=== PATIENT | male | born 2005 | race Caucasian/White ===

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

== ENCOUNTER 2023-01-07 03:38 | Day surgery (SDC) | payer BC, OTHER | END 2023-01-07 22:39 | disposition home or self-care (01) | LOC: WOUND 03:38 | DX: L89.153 Pressure ulcer of sacral region, stage 3 (principal); R77.0 Abnormality of albumin; G82.50 Quadriplegia, unspecified ==

== ENCOUNTER 2023-01-20 01:25 | Day surgery (SDC) | payer BC, OTHER | END 2023-01-20 22:45 | disposition home or self-care (01) | LOC: WOUND 01:25 | DX: L89.154 Pressure ulcer of sacral region, stage 4 (principal); G82.50 Quadriplegia, unspecified; L89.213 Pressure ulcer of right hip, stage 3 | CPT/HCPCS: G0463 ==

== ENCOUNTER 2023-01-28 00:38 | Day surgery (SDC) | payer BC, OTHER | END 2023-01-28 22:39 | disposition home or self-care (01) | LOC: WOUND 00:38 | DX: L89.154 Pressure ulcer of sacral region, stage 4 (principal); L89.222 Pressure ulcer of left hip, stage 2; G82.50 Quadriplegia, unspecified ==

== ENCOUNTER 2023-02-04 02:09 | Day surgery (SDC) | payer BC, OTHER | END 2023-02-04 22:41 | disposition home or self-care (01) | LOC: WOUND 02:09 | DX: L89.153 Pressure ulcer of sacral region, stage 3 (principal); G82.50 Quadriplegia, unspecified; R77.0 Abnormality of albumin; L89.213 Pressure ulcer of right hip, stage 3 | CPT/HCPCS: G0463 ==

== ENCOUNTER 2023-02-11 02:47 | Day surgery (SDC) | payer BC, OTHER | END 2023-02-11 22:39 | disposition home or self-care (01) | LOC: WOUND 02:47 | DX: L89.154 Pressure ulcer of sacral region, stage 4 (principal); L89.222 Pressure ulcer of left hip, stage 2; G82.50 Quadriplegia, unspecified; R77.0 Abnormality of albumin ==

== ENCOUNTER 2023-02-25 02:42 | Day surgery (SDC) | payer BC, OTHER | END 2023-02-25 22:49 | disposition home or self-care (01) | LOC: WOUND 02:42 | DX: L89.154 Pressure ulcer of sacral region, stage 4 (principal); L89.222 Pressure ulcer of left hip, stage 2; G82.50 Quadriplegia, unspecified | CPT/HCPCS: G0463 ==

== ENCOUNTER 2023-03-03 02:22 | Day surgery (SDC) | payer BC, OTHER | END 2023-03-03 22:48 | disposition home or self-care (01) | LOC: WOUND 02:22 | DX: L89.154 Pressure ulcer of sacral region, stage 4 (principal); L89.222 Pressure ulcer of left hip, stage 2; G82.50 Quadriplegia, unspecified; L89.213 Pressure ulcer of right hip, stage 3 | CPT/HCPCS: G0463 ==

== ENCOUNTER 2023-03-15 00:27 | Day surgery (SDC) | payer BC, OTHER ==
[2023-03-15 16:16] LABS: Prealbumin, Blood 15.8 mg/dL (20.0-40.0)
[2023-03-15 16:17] LABS: Albumin, Blood 3.4 g/dL (3.4-5.0); Albumin/Globulin Ratio 0.7 (0.8-1.8); Bilirubin, Total 0.3 mg/dL (0.1-1.0); Bun/Creatinine Ratio 50.7 (12.0-20.0); Calcium, Blood 9.4 mg/dL (8.5-10.1); Creatinine, Blood 0.34 mg/dL (0.60-1.20); Globulin, Blood 4.6 g/dL (2.2-4.0); Potassium, Blood 3.7 mmol/L (3.5-5.5)
== END 2023-03-15 22:52 | disposition home or self-care (01) ==
LOC: WOUND 00:27
PROVIDERS: Surgery
DX: L89.154 Pressure ulcer of sacral region, stage 4 (principal); L89.222 Pressure ulcer of left hip, stage 2; G82.50 Quadriplegia, unspecified; R77.0 Abnormality of albumin
CPT/HCPCS: 80053; 84134

== ENCOUNTER 2023-03-22 08:00 | Day surgery (SDC) | payer BC, OTHER | END 2023-03-22 23:59 | disposition home or self-care (01) | LOC: WOUND 08:00 | DX: L89.154 Pressure ulcer of sacral region, stage 4 (principal); L89.322 Pressure ulcer of left buttock, stage 2; G82.50 Quadriplegia, unspecified; R77.0 Abnormality of albumin ==

== ENCOUNTER 2023-03-29 02:14 | Day surgery (SDC) | payer BC, OTHER | END 2023-03-29 22:49 | disposition home or self-care (01) | LOC: WOUND 02:14 | DX: L89.154 Pressure ulcer of sacral region, stage 4 (principal); L89.152 Pressure ulcer of sacral region, stage 2; G82.50 Quadriplegia, unspecified; R77.0 Abnormality of albumin ==

== ENCOUNTER 2023-04-07 00:04 | Day surgery (SDC) | payer BC, OTHER | END 2023-04-07 22:51 | disposition home or self-care (01) | LOC: WOUND 00:04 | DX: L89.154 Pressure ulcer of sacral region, stage 4 (principal); L89.322 Pressure ulcer of left buttock, stage 2; G82.50 Quadriplegia, unspecified; R77.0 Abnormality of albumin; L89.213 Pressure ulcer of right hip, stage 3 | CPT/HCPCS: G0463 ==

== ENCOUNTER 2023-04-21 03:47 | Day surgery (SDC) | payer BC, OTHER | END 2023-04-21 22:57 | disposition home or self-care (01) | LOC: WOUND 03:47 | DX: L89.224 Pressure ulcer of left hip, stage 4 (principal); L89.324 Pressure ulcer of left buttock, stage 4; G82.50 Quadriplegia, unspecified; R77.0 Abnormality of albumin | CPT/HCPCS: 72170; G0463 ==

== ENCOUNTER 2023-04-28 03:50 | Day surgery (SDC) | payer BC, OTHER | END 2023-04-28 22:45 | disposition home or self-care (01) | LOC: WOUND 03:50 | DX: L89.224 Pressure ulcer of left hip, stage 4 (principal); L89.154 Pressure ulcer of sacral region, stage 4; G82.50 Quadriplegia, unspecified; R77.0 Abnormality of albumin ==

== ENCOUNTER → 2023-05-05 | Day surgery (SDC) | payer BC, OTHER | LOC: WOUND 14:43 | DX: L89.154 Pressure ulcer of sacral region, stage 4 (principal); L89.224 Pressure ulcer of left hip, stage 4; G82.50 Quadriplegia, unspecified | CPT/HCPCS: G0463 ==

== ENCOUNTER 2023-05-26 04:42 | Day surgery (SDC) | payer BC, OTHER | END 2023-05-26 22:42 | disposition home or self-care (01) | LOC: WOUND 04:42 | DX: L89.154 Pressure ulcer of sacral region, stage 4 (principal); L89.224 Pressure ulcer of left hip, stage 4; R77.0 Abnormality of albumin; G82.50 Quadriplegia, unspecified ==

== ENCOUNTER 2023-06-02 02:31 | Day surgery (SDC) | payer BC, OTHER | END 2023-06-02 22:47 | disposition home or self-care (01) | LOC: WOUND 02:31 | DX: L89.154 Pressure ulcer of sacral region, stage 4 (principal); L89.324 Pressure ulcer of left buttock, stage 4; G82.50 Quadriplegia, unspecified; R77.0 Abnormality of albumin | CPT/HCPCS: G0463 ==

== ENCOUNTER 2023-06-09 04:13 | Day surgery (SDC) | payer BC, OTHER | END 2023-06-09 23:03 | disposition home or self-care (01) | LOC: WOUND 04:13 | DX: L89.154 Pressure ulcer of sacral region, stage 4 (principal); L89.224 Pressure ulcer of left hip, stage 4; G82.50 Quadriplegia, unspecified; R77.0 Abnormality of albumin | CPT/HCPCS: G0463 ==

== ENCOUNTER 2023-06-16 01:29 | Day surgery (SDC) | payer BC, OTHER | END 2023-06-16 23:13 | disposition home or self-care (01) | LOC: WOUND 01:29 | DX: L89.154 Pressure ulcer of sacral region, stage 4 (principal); L89.224 Pressure ulcer of left hip, stage 4; G82.50 Quadriplegia, unspecified; R77.0 Abnormality of albumin | CPT/HCPCS: G0463 ==

== ENCOUNTER 2023-06-23 03:00 | Day surgery (SDC) | payer BC, OTHER | END 2023-06-23 22:45 | disposition home or self-care (01) | LOC: WOUND 03:00 | DX: L89.224 Pressure ulcer of left hip, stage 4 (principal); L89.154 Pressure ulcer of sacral region, stage 4; G82.50 Quadriplegia, unspecified; R77.0 Abnormality of albumin | CPT/HCPCS: G0463 ==

== ENCOUNTER 2023-07-07 05:03 | Day surgery (SDC) | payer BC, OTHER | END 2023-07-07 22:43 | disposition home or self-care (01) | LOC: WOUND 05:03 | DX: L89.154 Pressure ulcer of sacral region, stage 4 (principal); L89.224 Pressure ulcer of left hip, stage 4; G82.50 Quadriplegia, unspecified; R77.0 Abnormality of albumin | CPT/HCPCS: G0463 ==

== ENCOUNTER 2023-07-14 03:02 | Day surgery (SDC) | payer BC, OTHER | END 2023-07-14 22:51 | disposition home or self-care (01) | LOC: WOUND 03:02 | DX: L89.224 Pressure ulcer of left hip, stage 4 (principal); L89.154 Pressure ulcer of sacral region, stage 4; G82.50 Quadriplegia, unspecified; R77.0 Abnormality of albumin | CPT/HCPCS: G0463 ==

== ENCOUNTER 2023-07-21 01:21 | Day surgery (SDC) | payer BC, OTHER | END 2023-07-21 22:47 | disposition home or self-care (01) | LOC: WOUND 01:21 | DX: L89.154 Pressure ulcer of sacral region, stage 4 (principal); L89.224 Pressure ulcer of left hip, stage 4; G82.50 Quadriplegia, unspecified; R77.0 Abnormality of albumin | CPT/HCPCS: G0463 ==

== ENCOUNTER 2023-07-28 02:10 | Day surgery (SDC) | payer BC, OTHER | END 2023-07-28 23:00 | disposition home or self-care (01) | LOC: WOUND 02:10 | DX: L89.154 Pressure ulcer of sacral region, stage 4 (principal); L89.224 Pressure ulcer of left hip, stage 4; G82.50 Quadriplegia, unspecified; R77.0 Abnormality of albumin | CPT/HCPCS: G0463 ==

== ENCOUNTER 2023-08-11 04:45 | Day surgery (SDC) | payer BC, OTHER | END 2023-08-11 22:46 | disposition home or self-care (01) | LOC: WOUND 04:45 | DX: L89.154 Pressure ulcer of sacral region, stage 4 (principal); L89.312 Pressure ulcer of right buttock, stage 2; L89.224 Pressure ulcer of left hip, stage 4; G82.50 Quadriplegia, unspecified; R77.0 Abnormality of albumin | CPT/HCPCS: G0463 ==

== ENCOUNTER 2023-08-25 02:31 | Day surgery (SDC) | payer BC, OTHER | END 2023-08-25 23:45 | disposition home or self-care (01) | LOC: WOUND 02:31 | DX: L89.154 Pressure ulcer of sacral region, stage 4 (principal); L89.224 Pressure ulcer of left hip, stage 4; L89.312 Pressure ulcer of right buttock, stage 2; G82.50 Quadriplegia, unspecified; R77.0 Abnormality of albumin | CPT/HCPCS: G0463 ==

== ENCOUNTER 2023-09-01 02:38 | Day surgery (SDC) | payer BC, OTHER | END 2023-09-01 23:18 | disposition home or self-care (01) | LOC: WOUND 02:38 | DX: L89.154 Pressure ulcer of sacral region, stage 4 (principal); L89.224 Pressure ulcer of left hip, stage 4; R77.0 Abnormality of albumin | CPT/HCPCS: G0463 ==

== ENCOUNTER 2023-09-08 05:19 | Day surgery (SDC) | payer BC, OTHER | END 2023-09-08 23:04 | disposition home or self-care (01) | LOC: WOUND 05:19 | DX: L89.154 Pressure ulcer of sacral region, stage 4 (principal); L89.224 Pressure ulcer of left hip, stage 4; L89.312 Pressure ulcer of right buttock, stage 2; G82.50 Quadriplegia, unspecified; R77.0 Abnormality of albumin | CPT/HCPCS: A9270; G0463 ==

== ENCOUNTER 2023-09-15 02:51 | Day surgery (SDC) | payer BC, OTHER | END 2023-09-15 22:48 | disposition home or self-care (01) | LOC: WOUND 02:51 | DX: L89.154 Pressure ulcer of sacral region, stage 4 (principal); L89.224 Pressure ulcer of left hip, stage 4; L89.313 Pressure ulcer of right buttock, stage 3; G82.50 Quadriplegia, unspecified; R77.0 Abnormality of albumin | CPT/HCPCS: G0463 ==

== ENCOUNTER 2023-09-22 04:53 | Day surgery (SDC) | payer BC, OTHER | END 2023-09-22 23:13 | disposition home or self-care (01) | LOC: WOUND 04:53 | DX: L89.224 Pressure ulcer of left hip, stage 4 (principal); L89.154 Pressure ulcer of sacral region, stage 4; L89.313 Pressure ulcer of right buttock, stage 3; G82.50 Quadriplegia, unspecified; R77.0 Abnormality of albumin | CPT/HCPCS: A9270 ==

== ENCOUNTER 2023-09-29 02:05 | Day surgery (SDC) | payer BC, OTHER | END 2023-09-29 22:50 | disposition home or self-care (01) | LOC: WOUND 02:05 | DX: L89.154 Pressure ulcer of sacral region, stage 4 (principal); L89.313 Pressure ulcer of right buttock, stage 3; L89.324 Pressure ulcer of left buttock, stage 4; G82.50 Quadriplegia, unspecified; R77.0 Abnormality of albumin | CPT/HCPCS: A9270 ==

== ENCOUNTER 2023-10-06 06:18 | Day surgery (SDC) | payer BC, OTHER | END 2023-10-06 22:58 | disposition home or self-care (01) | LOC: WOUND 06:18 | DX: L89.154 Pressure ulcer of sacral region, stage 4 (principal); L89.224 Pressure ulcer of left hip, stage 4; L89.313 Pressure ulcer of right buttock, stage 3; G82.50 Quadriplegia, unspecified; R77.0 Abnormality of albumin | CPT/HCPCS: G0463 ==

== ENCOUNTER 2023-10-13 02:35 | Day surgery (SDC) | payer BC, OTHER | END 2023-10-13 22:43 | disposition home or self-care (01) | LOC: WOUND 02:35 | DX: L89.154 Pressure ulcer of sacral region, stage 4 (principal); L89.224 Pressure ulcer of left hip, stage 4; G82.50 Quadriplegia, unspecified; R77.0 Abnormality of albumin; L89.319 Pressure ulcer of right buttock, unspecified stage | CPT/HCPCS: A9270 ==

== ENCOUNTER 2023-10-20 01:56 | Day surgery (SDC) | payer BC, OTHER | END 2023-10-20 22:35 | disposition home or self-care (01) | LOC: WOUND 01:56 | DX: L89.154 Pressure ulcer of sacral region, stage 4 (principal); L89.224 Pressure ulcer of left hip, stage 4; G82.50 Quadriplegia, unspecified; R77.0 Abnormality of albumin; L89.319 Pressure ulcer of right buttock, unspecified stage | CPT/HCPCS: A9270 ==

== ENCOUNTER 2023-10-27 02:29 | Day surgery (SDC) | payer BC, OTHER | END 2023-10-27 22:45 | disposition home or self-care (01) | LOC: WOUND 02:29 | DX: L89.154 Pressure ulcer of sacral region, stage 4 (principal); L89.224 Pressure ulcer of left hip, stage 4; L89.319 Pressure ulcer of right buttock, unspecified stage; G82.50 Quadriplegia, unspecified | CPT/HCPCS: A9270 ==

== ENCOUNTER 2023-11-03 03:27 | Day surgery (SDC) | payer BC, OTHER | END 2023-11-03 22:52 | disposition home or self-care (01) | LOC: WOUND 03:27 | DX: L89.154 Pressure ulcer of sacral region, stage 4 (principal); L89.224 Pressure ulcer of left hip, stage 4; G82.50 Quadriplegia, unspecified; R77.0 Abnormality of albumin; L89.319 Pressure ulcer of right buttock, unspecified stage | CPT/HCPCS: G0463 ==

== ENCOUNTER 2023-11-10 01:01 | Day surgery (SDC) | payer BC, OTHER | END 2023-11-10 22:46 | disposition home or self-care (01) | LOC: WOUND 01:01 | DX: L89.154 Pressure ulcer of sacral region, stage 4 (principal); L89.224 Pressure ulcer of left hip, stage 4; L89.319 Pressure ulcer of right buttock, unspecified stage; G82.50 Quadriplegia, unspecified; R77.0 Abnormality of albumin | CPT/HCPCS: G0463 ==

== ENCOUNTER 2023-11-17 05:22 | Day surgery (SDC) | payer BC, OTHER | END 2023-11-17 22:50 | disposition home or self-care (01) | LOC: WOUND 05:22 | DX: L89.224 Pressure ulcer of left hip, stage 4 (principal); L89.154 Pressure ulcer of sacral region, stage 4; L89.319 Pressure ulcer of right buttock, unspecified stage; G82.50 Quadriplegia, unspecified; R77.0 Abnormality of albumin | CPT/HCPCS: G0463 ==

== ENCOUNTER 2023-12-01 01:24 | Day surgery (SDC) | payer BC, OTHER | END 2023-12-01 22:55 | disposition home or self-care (01) | LOC: WOUND 01:24 | DX: L89.154 Pressure ulcer of sacral region, stage 4 (principal); L89.224 Pressure ulcer of left hip, stage 4; G82.50 Quadriplegia, unspecified; R77.0 Abnormality of albumin; L89.319 Pressure ulcer of right buttock, unspecified stage | CPT/HCPCS: G0463 ==

== ENCOUNTER 2023-12-08 03:13 | Day surgery (SDC) | payer BC, OTHER | END 2023-12-08 23:19 | disposition home or self-care (01) | LOC: WOUND 03:13 | DX: L89.154 Pressure ulcer of sacral region, stage 4 (principal); L89.324 Pressure ulcer of left buttock, stage 4; L89.224 Pressure ulcer of left hip, stage 4; G82.50 Quadriplegia, unspecified | CPT/HCPCS: G0463 ==

== ENCOUNTER → 2023-12-16 | Outpatient (CLI) | payer BC, OTHER ==
[2023-12-17 19:46] LABS: Adenovirus F 40/41 Not Detected (NOT DETECT); Astrovirus Not Detected (NOT DETECT); Campylobacter Sp Not Detected (NOT DETECT); Cryptosporidium Not Detected (NOT DETECT); Cyclospora Cayetanensis Not Detected (NOT DETECT); E. Coli O157 Not Detected (NOT DETECT); Entamoeba Histolytica Not Detected (NOT DETECT); Enteroaggregative E. coli-EAEC Not Detected (NOT DETECT); Enteropathogenic E. coli-EPEC Not Detected (NOT DETECT); Enterotoxigenic E. coli-ETEC Not Detected (NOT DETECT); Giardia Lamblia Not Detected (NOT DETECT); Norovirus GI/GII Not Detected (NOT DETECT); Plesiomonas Shigelloides Not Detected (NOT DETECT); Rotavirus A Not Detected (NOT DETECT); Salmonella Sp Not Detected (NOT DETECT); Sapovirus Not Detected (NOT DETECT); Shiga Toxin-prod E. coli-STEC Not Detected (NOT DETECT); Shigella/Enteroin E. coli-EIEC Not Detected (NOT DETECT); Vibrio Cholerae Not Detected (NOT DETECT); Vibrio Sp Not Detected (NOT DETECT); Yersinia Enterocolitica Not Detected (NOT DETECT)
== END ==
LOC: LAB SHORT 15:51
PROVIDERS: Hospitalist
DX: R19.7 Diarrhea, unspecified (principal)
CPT/HCPCS: 87324; 87507

== ENCOUNTER 2024-01-12 05:33 | Day surgery (SDC) | payer BC, OTHER ==
[2024-01-12] MEDS ORDERED: Silver Nitr/Potassium Nitrate 1 EA APPL ONE (15:03)
== END 2024-01-12 22:55 | disposition home or self-care (01) ==
LOC: WOUND 05:33
DX: L89.154 Pressure ulcer of sacral region, stage 4 (principal); L89.324 Pressure ulcer of left buttock, stage 4; L89.152 Pressure ulcer of sacral region, stage 2; L89.224 Pressure ulcer of left hip, stage 4; G82.50 Quadriplegia, unspecified; R77.0 Abnormality of albumin
CPT/HCPCS: A6213; A9270

== ENCOUNTER 2024-01-19 02:50 | Day surgery (SDC) | payer BC, OTHER | END 2024-01-19 22:51 | disposition home or self-care (01) | LOC: WOUND 02:50 | DX: L89.224 Pressure ulcer of left hip, stage 4 (principal); L89.154 Pressure ulcer of sacral region, stage 4; L89.312 Pressure ulcer of right buttock, stage 2; R77.0 Abnormality of albumin; G82.50 Quadriplegia, unspecified; S14.101S Unspecified injury at C1 level of cervical spinal cord, sequela; W14.XXXS Fall from tree, sequela | CPT/HCPCS: A6213; G0463 ==

== ENCOUNTER 2024-03-01 02:27 | Day surgery (SDC) | payer BC, OTHER ==
[2024-03-01] MEDS ORDERED: Lidocaine HCl 4% Cream 5 GM ONE (14:49)
== END 2024-03-01 23:28 | disposition home or self-care (01) ==
LOC: WOUND 02:27
DX: L89.154 Pressure ulcer of sacral region, stage 4 (principal); L89.224 Pressure ulcer of left hip, stage 4; L89.314 Pressure ulcer of right buttock, stage 4; R11.0 Nausea; G82.50 Quadriplegia, unspecified
CPT/HCPCS: A6213; A9270

== ENCOUNTER 2024-03-22 03:09 | Day surgery (SDC) | payer BC, OTHER | END 2024-03-22 22:41 | disposition home or self-care (01) | LOC: WOUND 03:09 | DX: L89.154 Pressure ulcer of sacral region, stage 4 (principal); L89.224 Pressure ulcer of left hip, stage 4; L89.314 Pressure ulcer of right buttock, stage 4; R77.0 Abnormality of albumin | CPT/HCPCS: A6213 ==

== ENCOUNTER 2024-05-17 04:01 | Day surgery (SDC) | payer BC, OTHER ==
[2024-05-17] MEDS ORDERED: Lidocaine HCl 4% Cream 5 GM ONE (14:40)
== END 2024-05-17 22:43 | disposition home or self-care (01) ==
LOC: WOUND 04:01
DX: L89.154 Pressure ulcer of sacral region, stage 4 (principal); L89.324 Pressure ulcer of left buttock, stage 4; L89.314 Pressure ulcer of right buttock, stage 4; G82.50 Quadriplegia, unspecified; R77.0 Abnormality of albumin; L89.224 Pressure ulcer of left hip, stage 4
CPT/HCPCS: A6213; A9270; G0463

== ENCOUNTER 2024-05-24 03:21 | Day surgery (SDC) | payer BC, OTHER | END 2024-05-24 23:04 | disposition home or self-care (01) | LOC: WOUND 03:21 | DX: L89.154 Pressure ulcer of sacral region, stage 4 (principal); L89.224 Pressure ulcer of left hip, stage 4; L89.314 Pressure ulcer of right buttock, stage 4; G82.50 Quadriplegia, unspecified | CPT/HCPCS: A6213; G0463 ==

== ENCOUNTER 2024-05-31 02:28 | Day surgery (SDC) | payer BC, OTHER ==
[2024-05-31] MEDS ORDERED: Silver Nitr/Potassium Nitrate 1 EA APPL ONE (14:47)
== END 2024-05-31 22:55 | disposition home or self-care (01) ==
LOC: WOUND 02:28
DX: L89.154 Pressure ulcer of sacral region, stage 4 (principal); L89.324 Pressure ulcer of left buttock, stage 4; L89.314 Pressure ulcer of right buttock, stage 4; L89.224 Pressure ulcer of left hip, stage 4; G82.50 Quadriplegia, unspecified; R77.0 Abnormality of albumin
CPT/HCPCS: A6213; A9270

== ENCOUNTER 2024-06-07 03:23 | Day surgery (SDC) | payer BC, OTHER | END 2024-06-09 22:47 | disposition home or self-care (01) | LOC: WOUND 03:23 | DX: L89.154 Pressure ulcer of sacral region, stage 4 (principal); L89.324 Pressure ulcer of left buttock, stage 4; L89.314 Pressure ulcer of right buttock, stage 4; G82.50 Quadriplegia, unspecified; R77.0 Abnormality of albumin | CPT/HCPCS: A6213; G0463 ==

== ENCOUNTER 2024-06-21 02:52 | Day surgery (SDC) | payer BC, OTHER ==
[2024-06-21] MEDS ORDERED: Lidocaine HCl 4% Cream 5 GM ONE (14:33)
== END 2024-06-21 22:57 | disposition home or self-care (01) ==
LOC: WOUND 02:52
DX: L89.154 Pressure ulcer of sacral region, stage 4 (principal); L89.324 Pressure ulcer of left buttock, stage 4; L89.314 Pressure ulcer of right buttock, stage 4; G82.50 Quadriplegia, unspecified
CPT/HCPCS: A6213; A9270; G0463

== ENCOUNTER 2024-07-12 05:42 | Day surgery (SDC) | payer BC, OTHER ==
[2024-07-12] MEDS ORDERED: Silver Nitr/Potassium Nitrate 1 EA APPL ONE (14:50)
== END 2024-07-12 23:09 | disposition home or self-care (01) ==
LOC: WOUND 05:42
DX: L89.154 Pressure ulcer of sacral region, stage 4 (principal); L89.224 Pressure ulcer of left hip, stage 4; L89.314 Pressure ulcer of right buttock, stage 4; G82.50 Quadriplegia, unspecified; R77.0 Abnormality of albumin
CPT/HCPCS: A6213; A9270

== ENCOUNTER 2024-07-26 04:24 | Day surgery (SDC) | payer BC, OTHER | END 2024-07-26 22:44 | disposition home or self-care (01) | LOC: WOUND 04:24 | DX: L89.224 Pressure ulcer of left hip, stage 4 (principal); L89.154 Pressure ulcer of sacral region, stage 4; L89.314 Pressure ulcer of right buttock, stage 4 | CPT/HCPCS: A6213; G0463 ==

== ENCOUNTER 2024-08-30 04:35 | Day surgery (SDC) | payer BC, OTHER ==
[2024-08-30] MEDS ORDERED: Silver Nitr/Potassium Nitrate 1 EA APPL ONE (14:43)
== END 2024-08-30 23:14 | disposition home or self-care (01) ==
LOC: WOUND 04:35
DX: L89.154 Pressure ulcer of sacral region, stage 4 (principal); L89.314 Pressure ulcer of right buttock, stage 4; L89.224 Pressure ulcer of left hip, stage 4; G82.50 Quadriplegia, unspecified
CPT/HCPCS: A6213; A9270; G0463

== ENCOUNTER 2024-09-13 01:56 | Day surgery (SDC) | payer BC, OTHER ==
[2024-09-13] MEDS ORDERED: Silver Nitr/Potassium Nitrate 1 EA APPL ONE (14:43)
== END 2024-09-13 23:11 | disposition home or self-care (01) ==
LOC: WOUND 01:56
DX: L89.154 Pressure ulcer of sacral region, stage 4 (principal); L89.324 Pressure ulcer of left buttock, stage 4; L89.314 Pressure ulcer of right buttock, stage 4; G82.50 Quadriplegia, unspecified
CPT/HCPCS: A6196; A6213; A9270

== ENCOUNTER 2024-09-19 17:02 | Emergency (ER) | payer BC, OTHER ==
[~2024-09-19] VITALS: Ht 172.7 cm; Wt 39.0 kg
[2024-09-19 18:28] LABS: BASOPHILS ABSOLUTE AUTO 0.03 K/mm3 (0.00-0.23); BASOPHILS PERCENT AUTO 0 % (0-2); EOSINOPHILS ABSOLUTE AUTO 0.03 K/mm3 (0.00-0.68); EOSINOPHILS PERCENT AUTO 0 % (0-6); Hematocrit 46.4 % (37.0-53.0); Hemoglobin 15.4 g/dL (13.5-17.5); IMMATURE GRAN ABSOLUTE AUTO 0.05 K/mm3 (0.00-0.10); IMMATURE GRAN PERCENT AUTO 1 % (0-1); LYMPHOCYTES ABSOLUTE AUTO 1.73 K/mm3 (0.84-5.20); LYMPHOCYTES PERCENT AUTO 19 % (21-46); MONOCYTES ABSOLUTE AUTO 0.92 K/mm3 (0.16-1.47); MONOCYTES PERCENT AUTO 10 % (4-13); Mean Corpuscular HGB 28.3 pg (26.0-34.0); Mean Corpuscular HGB Conc 33.2 g/dL (31.5-36.5); Mean Corpuscular Volume 85 fL (80-100); Mean Platelet Volume 10.1 fL (9.1-12.4); NEUTROPHILS ABSOLUTE AUTO 6.36 K/mm3 (1.96-9.15); NEUTROPHILS PERCENT AUTO 70 % (41-73); Platelet Count 284 K/mm3 (150-400); RDW Coefficient Variation 14.4 % (11.7-14.2); RDW Standard Deviation 44.8 fL (35.1-46.3); Red Blood Cell Count 5.45 M/mm3 (4.30-5.90); White Blood Cell Count 9.12 K/mm3 (4.00-11.30)
[2024-09-19 18:39] LABS: Albumin, Blood 3.7 g/dL (3.4-5.0); Albumin/Globulin Ratio 0.7 (0.8-1.8); Bilirubin, Total 0.8 mg/dL (0.1-1.0); Bun/Creatinine Ratio 51.9 (12.0-20.0); Calcium, Blood 9.3 mg/dL (8.5-10.1); Creatinine, Blood 0.39 mg/dL (0.60-1.20); Globulin, Blood 5.1 g/dL (2.2-4.0); Potassium, Blood 3.8 mmol/L (3.5-5.5); Total Protein, Blood 8.8 g/dL (6.4-8.2)
[2024-09-19 20:34] LABS: Source, Urine Clean Catch
[2024-09-19 20:51] LABS: Bilirubin, Urine Neg (Neg); Blood, Urine 5+ (Neg); Glucose Qualitative, Urine Neg (Neg); Ketones, Urine Neg (Neg); Leukocyte Esterase, Urine 3+ (Neg); Nitrite, Urine Neg (Neg); Protein, Urine 2+ (Neg); Specific Gravity, Urine 1.025 (1.003-1.022); Urobilinogen, Urine 1+ (Normal)
[2024-09-19 20:58] LABS: Appearance, Urine Hazy (Clear); Color, Urine Yellow (P-Yellow); White Blood Cells, Urine TNTC /hpf (0-5)
[2024-09-19 20:59] LABS: Bacteria Many /hpf; Squamous Epithelial Cells Rare /hpf (Few)
[2024-09-19 21:34] VITALS: BP 92/68
[2024-09-20] MEDS ORDERED: CEFD300 PO (05:11)
== END 2024-09-19 21:35 | disposition home or self-care (01) ==
LOC: ER 17:02
PROVIDERS: Physician Assistant
DX: R33.9 Retention of urine, unspecified (principal); Z79.899 Other long term (current) drug therapy; Z99.3 Dependence on wheelchair
CPT/HCPCS: 36415; 51702; 51798; 80053; 81001; 85025; 87077; 87086; 87186; 99283-25

== ENCOUNTER 2024-09-27 03:32 | Day surgery (SDC) | payer BC, OTHER ==
[~2024-09-27 03:32] MED LIST changes: +CEFD300 PO
[2024-09-27] MEDS ORDERED: Lidocaine HCl 4% Cream 5 GM ONE (14:39)
== END 2024-09-27 23:00 | disposition home or self-care (01) ==
LOC: WOUND 03:32
DX: L89.314 Pressure ulcer of right buttock, stage 4 (principal); L89.154 Pressure ulcer of sacral region, stage 4; L89.224 Pressure ulcer of left hip, stage 4; G82.51 Quadriplegia, C1-C4 complete
CPT/HCPCS: A6213; A9270

== ENCOUNTER 2024-10-18 01:16 | Day surgery (SDC) | payer BC, OTHER ==
[2024-10-18] MEDS ORDERED: Lidocaine HCl 4% Cream 5 GM ONE (14:45)
== END 2024-10-18 22:53 | disposition home or self-care (01) ==
LOC: WOUND 01:16
DX: L89.154 Pressure ulcer of sacral region, stage 4 (principal); L89.324 Pressure ulcer of left buttock, stage 4; L89.314 Pressure ulcer of right buttock, stage 4; L89.153 Pressure ulcer of sacral region, stage 3; L89.224 Pressure ulcer of left hip, stage 4; G82.50 Quadriplegia, unspecified
CPT/HCPCS: A6213; A9270

== ENCOUNTER 2024-11-01 03:45 | Day surgery (SDC) | payer BC, OTHER ==
[2024-11-01] MEDS ORDERED: Lidocaine HCl 4% Cream 5 GM ONE (14:42)
[2024-11-01] MEDS ORDERED: Silver Nitr/Potassium Nitrate 1 EA APPL ONE (14:49)
== END 2024-11-01 23:00 | disposition home or self-care (01) ==
LOC: WOUND 03:45
DX: L89.224 Pressure ulcer of left hip, stage 4 (principal); L89.154 Pressure ulcer of sacral region, stage 4; L89.314 Pressure ulcer of right buttock, stage 4; L89.153 Pressure ulcer of sacral region, stage 3; G82.50 Quadriplegia, unspecified; R77.0 Abnormality of albumin
CPT/HCPCS: A6213; A9270

== ENCOUNTER 2024-11-08 05:46 | Day surgery (SDC) | payer BC, OTHER | END 2024-11-08 23:00 | disposition home or self-care (01) | LOC: WOUND 05:46 | DX: L89.154 Pressure ulcer of sacral region, stage 4 (principal); L89.314 Pressure ulcer of right buttock, stage 4; L89.153 Pressure ulcer of sacral region, stage 3; L89.224 Pressure ulcer of left hip, stage 4; G82.50 Quadriplegia, unspecified | CPT/HCPCS: A6213; G0463 ==

== ENCOUNTER 2024-11-29 01:21 | Day surgery (SDC) | payer BC, OTHER | END 2024-11-29 23:00 | disposition home or self-care (01) | LOC: WOUND 01:21 | DX: L89.154 Pressure ulcer of sacral region, stage 4 (principal); L89.314 Pressure ulcer of right buttock, stage 4; L89.153 Pressure ulcer of sacral region, stage 3; G82.52 Quadriplegia, C1-C4 incomplete | CPT/HCPCS: A6213; G0463 ==

== ENCOUNTER 2024-12-20 03:21 | Day surgery (SDC) | payer BC, OTHER | END 2024-12-20 23:06 | disposition home or self-care (01) | LOC: WOUND 03:21 | DX: L89.314 Pressure ulcer of right buttock, stage 4 (principal); L89.153 Pressure ulcer of sacral region, stage 3; L89.224 Pressure ulcer of left hip, stage 4; G82.50 Quadriplegia, unspecified | CPT/HCPCS: A6213; G0463 ==

== ENCOUNTER 2025-01-10 00:19 | Day surgery (SDC) | payer BC, OTHER | END 2025-01-10 23:00 | disposition home or self-care (01) | LOC: WOUND 00:19 | DX: L89.314 Pressure ulcer of right buttock, stage 4 (principal); L89.153 Pressure ulcer of sacral region, stage 3; G82.52 Quadriplegia, C1-C4 incomplete | CPT/HCPCS: G0463 ==

== ENCOUNTER 2025-02-07 01:50 | Day surgery (SDC) | payer BC, OTHER | END 2025-02-07 23:00 | disposition home or self-care (01) | LOC: WOUND 01:50 | DX: L89.314 Pressure ulcer of right buttock, stage 4 (principal); L89.153 Pressure ulcer of sacral region, stage 3; G82.51 Quadriplegia, C1-C4 complete | CPT/HCPCS: A6213; G0463 ==

== ENCOUNTER 2025-02-28 03:07 | Day surgery (SDC) | payer BC, OTHER | END 2025-02-28 23:00 | disposition home or self-care (01) | LOC: WOUND 03:07 | DX: L89.153 Pressure ulcer of sacral region, stage 3 (principal); L89.314 Pressure ulcer of right buttock, stage 4; G82.50 Quadriplegia, unspecified | CPT/HCPCS: A6213; G0463 ==

== ENCOUNTER 2025-03-14 01:53 | Day surgery (SDC) | payer BC, OTHER | END 2025-03-14 23:00 | LOC: WOUND 01:53 | DX: L89.314 Pressure ulcer of right buttock, stage 4 (principal); L89.153 Pressure ulcer of sacral region, stage 3; G82.50 Quadriplegia, unspecified; R77.0 Abnormality of albumin | CPT/HCPCS: A6213; G0463 ==

== ENCOUNTER 2025-04-11 06:02 | Day surgery (SDC) | payer BC, OTHER | END 2025-04-11 23:00 | LOC: WOUND 06:02 | DX: L89.314 Pressure ulcer of right buttock, stage 4 (principal); L89.153 Pressure ulcer of sacral region, stage 3; G82.50 Quadriplegia, unspecified | CPT/HCPCS: A6213; G0463 ==

== ENCOUNTER 2025-06-06 03:53 | Day surgery (SDC) | payer BC, OTHER | END 2025-06-06 23:00 | disposition home or self-care (01) | LOC: WOUND 03:53 | DX: L89.323 Pressure ulcer of left buttock, stage 3 (principal); G82.50 Quadriplegia, unspecified | CPT/HCPCS: A6213; G0463 ==

== ENCOUNTER 2025-07-11 07:51 | Day surgery (SDC) | payer BC, OTHER | END 2025-07-11 23:00 | disposition home or self-care (01) | LOC: WOUND 07:51 | DX: L89.323 Pressure ulcer of left buttock, stage 3 (principal); L89.313 Pressure ulcer of right buttock, stage 3; G82.50 Quadriplegia, unspecified; R77.0 Abnormality of albumin | CPT/HCPCS: A6213; G0463 ==

== ENCOUNTER 2025-08-01 02:16 | Day surgery (SDC) | payer BC, OTHER | END 2025-08-01 23:00 | disposition home or self-care (01) | LOC: WOUND 02:16 | DX: L89.323 Pressure ulcer of left buttock, stage 3 (principal); L89.313 Pressure ulcer of right buttock, stage 3; G82.51 Quadriplegia, C1-C4 complete | CPT/HCPCS: A6213; G0463 ==

== ENCOUNTER 2025-09-05 00:36 | Day surgery (SDC) | payer BC, OTHER | END 2025-09-05 23:00 | disposition home or self-care (01) | LOC: WOUND 00:36 | DX: L89.153 Pressure ulcer of sacral region, stage 3 (principal); G82.50 Quadriplegia, unspecified; R77.0 Abnormality of albumin | CPT/HCPCS: A6213; G0463 ==

== ENCOUNTER 2025-09-26 01:53 | Day surgery (SDC) | payer BC, OTHER | END 2025-09-26 23:00 | disposition home or self-care (01) | LOC: WOUND 01:53 | DX: L89.323 Pressure ulcer of left buttock, stage 3 (principal); L89.313 Pressure ulcer of right buttock, stage 3; G82.50 Quadriplegia, unspecified | CPT/HCPCS: A6213; G0463 ==

== ENCOUNTER 2025-10-17 01:17 | Day surgery (SDC) | payer BC, OTHER | END 2025-10-17 23:00 | disposition home or self-care (01) | LOC: WOUND 01:17 | DX: L89.323 Pressure ulcer of left buttock, stage 3 (principal); L89.313 Pressure ulcer of right buttock, stage 3; G82.50 Quadriplegia, unspecified | CPT/HCPCS: A6213; G0463 ==